=== PATIENT | male | born 1990 | race American Indian/Alaskan Native ===

== ENCOUNTER 2020-11-27 04:51 | Emergency (ER) | payer OTHER ==
[2020-11-27] MEDS ORDERED: ACETAMINOPHEN 500 MG TAB PO ONE (05:00)
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
[2020-11-27] MEDS ORDERED: traMADol 50 MG TAB PO ONE (06:15)
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
[2020-11-27 07:34] VITALS: BP 128/82
== END 2020-11-27 07:35 | disposition home or self-care (01) ==
LOC: ED 04:51
DX: S02.2XXA Fracture of nasal bones, initial encounter for closed fracture (principal); J45.909 Unspecified asthma, uncomplicated; Z88.0 Allergy status to penicillin; Z79.899 Other long term (current) drug therapy; W22.8XXA Striking against or struck by other objects, initial encounter; Y93.89 Activity, other specified; Y92.89 Other specified places as the place of occurrence of the external cause; Y99.8 Other external cause status
CPT/HCPCS: 70450; 70486; 72125; 99283